=== PATIENT | female | born 2000 | race Caucasian/White ===

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

== ENCOUNTER → 2019-04-20 17:07 | Outpatient (CLI) | payer OTHER, SELFPAY ==
[2019-04-23 10:36] LABS: Neisseria gonorrhoeae, NAA Negative (Negative)
== END ==
PROVIDERS: Visit Provider Nurse Practitioner Obstetrics & Gynecology
DX: Z72.51 High risk heterosexual behavior (principal)
CPT/HCPCS: 87491; 87591

== ENCOUNTER → 2019-04-27 10:08 | Outpatient (CLI) | payer OTHER, SELFPAY ==
--- NOTE | 2019-04-27 10:08 | XR_ITS ---
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 Left femoral neck density is 0.843 grams/centimeters sq with a Z-score of -0.1. L1-L4 density is 1.008 grams/centimeters sq with a Z-score of -0.1. IMPRESSION: Normal bone density for age matched controls Dictated by: Shahid Huston MD 04/27/2019 11:48 Electronically signed by Shahid Huston MD in [place] 04/27/2019 11:48
== END ==
PROVIDERS: PCP Nurse Practitioner Obstetrics & Gynecology; Visit Provider Obstetrics & Gynecology
DX: Z79.3 Long term (current) use of hormonal contraceptives (principal)
CPT/HCPCS: 77080

== ENCOUNTER → 2019-09-18 09:26 | Outpatient (CLI) | payer OTHER, SELFPAY ==
[2019-09-19 08:35] LABS: Covid-19 Nasal PCR Sendout UK Not Detected
== END ==
PROVIDERS: Visit Provider Otolaryngology
DX: Z03.818 Encounter for observation for suspected exposure to other biological agents ruled out (principal)
CPT/HCPCS: U0003

== ENCOUNTER 2019-10-15 07:56 | Emergency (ER) | payer OTHER, SELFPAY ==
[2019-10-15 08:03] VITALS: BP 114/73; PULSE 70; RESP 18; TEMP 36.6; O2SAT 96; BMI 22.6
--- NOTE | 2019-10-15 08:14 | PC.NURSE ---
ER gave verbal orders for pt
--- NOTE | 2019-10-15 08:15 | CT_ITS ---
PROCEDURE: CT HEAD/BRAIN WO CON CLINICAL INDICATION: headache x4 days, some nausea COMPARISON: CT HDWO CT HEAD W/O CONTRAST from 03/13/2016 TECHNIQUE: Axial images obtained. All CT scans at the facility use one or more dose reduction, viz: automated exposure control, ma/kV adjustment per patient size (including targeted exams where dose is matched to indication, i.e. head), or iterative reconstruction technique. FINDINGS: No midline shift, mass effect, intracranial hemorrhage, hydrocephalus, or extra-axial fluid collection is evident. The calvarium has an unremarkable appearance. No mastoid effusion. No sinus air-fluid level. IMPRESSION: No acute intracranial finding Dictated Dr. Amarjit Mckoen MD 10/15/2019 08:47 Dr. Amarjit Livingston MD in [place] 10/15/2019 08:47
--- NOTE | 2019-10-15 08:17 | PC.NURSE ---
notified rad of Ct head order, spoke with logan
--- NOTE | 2019-10-15 08:34 | PC.NURSE ---
pt to CT
[2019-10-15 08:58] VITALS: BP 110/89; PULSE 63; RESP 18; O2SAT 98
[2019-10-15 09:19] VITALS: BP 118/88; PULSE 64; O2SAT 99
--- NOTE | 2019-10-15 09:30 | HMH.EDHA ---
ED Disposition Clinical Impression: Migraine, Vulvovaginitis Disposition: Home, Self-Care Condition on Discharge: Good Instructions: DI for Migraine Prescriptions: Fluconazole [Diflucan 150mg tab] 150 mg PO DAILY 3 Days #3 tab Transmission Status: Pending to [facility] Referrals: PCP,No [Primary Care Provider] - - Critical Care Critical Care Time: No Attestation: On 10/15/19, the high probability of a clinically significant, sudden or life threatening deterioration of the following system(s) required my full and direct attention, intervention and personal management. The time I documented below is in addition to time spent performing reported procedures but includes the following listed in this critical care notation. Medical Decision Making - Medical Records Medical records reviewed: Yes: I reviewed the patient's medical records. - Emerson Inquiry Pt receiving controlled substance: No Vital Signs: 10/15/19 08:03 10/15/19 08:58 10/15/19 09:19 Temperature 97.9 F Temperature Source Oral Pulse Rate [Right Radial] 70 63 64 Respiratory Rate 18 18 Blood Pressure [Right Arm] 114/73 110/89 118/88 Blood Pressure Mean [Right Arm] 86 96 98 Blood Pressure Source [Right Arm] Automatic Cuff Automatic Cuff Automatic Cuff Blood Pressure Position [Right Arm] Sitting Sitting Sitting 02 Sat by Pulse Oximetry 96 98 99 Oxygen Delivery Method Room Air Room Air Room Air - Lab Data Lab results reviewed: Yes: I reviewed the patient's lab results. Orders (Tests/Meds): ED MEDICATIONS Generic Name Dose Route Start Last Admin Trade Name Freq PRN Reason Stop Dose Admin Sodium Chloride 1,000 mls @ 999 mls/hr 10/15/19 08:30 10/15/19 08:30 Sod Chlor 0.9% 1000ml Bag IV 10/15/19 09:30 999 mls/hr .[id number] MICHAEL Administration Discontinued Medications Generic Name Dose Route Start Last Admin Trade Name Freq PRN Reason Stop Dose Admin Dihydroergotamine Mesylate 1 mg 10/15/19 08:15 10/15/19 08:30 D.H.E. 45 1mg/Ml Amp IVP 10/15/19 08:16 1 mg ONCE ONE Administration Diphenhydramine HCl 25 mg 10/15/19 08:25 10/15/19 08:30 Benadryl 50mg/1ml Vial IV 10/15/19 08:26 25 mg ONCE ONE Administration Metoclopramide HCl 10 mg 10/15/19 08:15 10/15/19 08:30 Reglan 10mg/2ml Vial IVP 10/15/19 08:16 10 mg ONCE ONE Administration ORDERS Category Date Time Status Urinalysis and Microscopic Stat Lab 10/15/19 08:15 Ordered Urine , HCG Qual. Stat Lab 10/15/19 08:15 Ordered - CT Data CT Scan: Head Time Received: 09:[address] Reviewed: Yes: I have viewed the radiologist's interpretation Preliminary Findings: Normal/NAD Headache HPI - General Chief Complaint: Headache Stated Complaint: migraine voming Time Seen by Provider: 10/15/19 09:30 Mode of Arrival: Ambulatory Limitations: No Limitations Description of Symptoms (Recalled from ER Triage Doc. by RN): Pt reports headache x4 days, pt reports nausea this am with 1 episode of vomitting. Pt also reports she is concerned she may have a UTI and yeast infection. - History of Present Illness HPI Narrative: A 19-year-old female presents emergency department complain about a headache. Patient states that headache started about 3 to 4 days ago and she says it is kind of a classical migraine-like picture. Patient states that she is also had one episode of emesis today as well patient does describe this headache is a bandlike constriction going around her head she rates this pain 7 out of 10 patient states exacerbating factors include bright lights and loud noises. Alleviating factors include rest. Patient denies any nausea vomiting or diarrhea except for 1 episode of emesis patient also states that she does have photophobia. Patient states she does denies any recent fever shakes or chills. Patient denies any sore throat patient also denies any loss of taste or smell. Patient denies any arthralgias or cj
[2019-10-15 09:55] VITALS: BP 127/81; PULSE 81; RESP 18; TEMP 36.9; O2SAT 100
== END 2019-10-15 09:54 | disposition home or self-care (01) ==
PROVIDERS: Emergency Provider Family Medicine
DX: G43.909 Migraine, unspecified, not intractable, without status migrainosus (principal); N76.0 Acute vaginitis
CPT/HCPCS: 70450; 96365; 96375; 99283; 99284; J1110

== ENCOUNTER → 2019-11-11 13:05 | Outpatient (CLI) | payer OTHER, SELFPAY ==
[2019-11-16 15:03] LABS: QuantiFERON-TB Gold Plus Negative (Negative)
== END ==
LOC: UTC.OUT 13:07 → LAB 13:57
PROVIDERS: Visit Provider Nurse Practitioner
DX: Z11.1 Encounter for screening for respiratory tuberculosis (principal)
CPT/HCPCS: 36415; 86480

== ENCOUNTER 2020-04-05 09:19 | Emergency (ER) | payer OTHER, SELFPAY ==
[2020-04-05 09:20] VITALS: BP 122/72; PULSE 89; RESP 16; TEMP 36.9; O2SAT 96; BMI 22.6
--- NOTE | 2020-04-05 09:30 | HMH.EDGENADL ---
ED Disposition Clinical Impression: Viral upper respiratory tract infection Disposition: Home, Self-Care Condition on Discharge: Good Instructions: DI for Viral Upper Respiratory Infection -- Adult Additional Instructions: Quarantine yourself until you obtain your COVID-19 test result. Additional instructions for UPPER RESPIRATORY INFECTION: See your physician if not improving in 3-4 days or if worsening. Rest and drink plenty of fluids. Return immediately if you have an uncontrollable fever greater than 104 degrees, difficulty breathing or shortness of breath, persistent vomiting, or inability to swallow. Referrals: PCP,No [Primary Care Provider] - Forms: Work/School Release - Critical Care Critical Care Time: No Attestation: On , the high probability of a clinically significant, sudden or life threatening deterioration of the following system(s) required my full and direct attention, intervention and personal management. The time I documented below is in addition to time spent performing reported procedures but includes the following listed in this critical care notation. Medical Decision Making - Emerson Inquiry Pt receiving controlled substance: No Vital Signs: 04/05/20 09:20 04/05/20 09:54 04/05/20 10:38 Temperature 98.5 F 98.6 F Temperature Source Oral Oral Pulse Rate 78 Pulse Rate [Right] 89 84 Respiratory Rate 16 18 16 Blood Pressure 113/60 Blood Pressure [Right Arm] 122/72 111/74 Blood Pressure Mean [Right Arm] 88 86 Blood Pressure Source Automatic Cuff Blood Pressure Source [Right Arm] Automatic Cuff Blood Pressure Position Sitting Blood Pressure Position [Right Arm] Sitting 02 Sat by Pulse Oximetry 96 96 Oxygen Delivery Method Room Air Room Air - Lab Data Lab results reviewed: Yes: I reviewed the patient's lab results. Lab Results 04/05/20 09:45: Influenza Type A Ag Negative, Influenza Type B Ag Negative 04/05/20 09:45: Group A Strep Rapid Negative Orders (Tests/Meds): ED MEDICATIONS Discontinued Medications Generic Name Dose Route Start Last Admin Trade Name Freq PRN Reason Stop Dose Admin Acetaminophen 650 mg 04/05/20 09:36 04/05/20 09:43 Acetaminophen 325mg Tab PO 04/05/20 09:37 650 mg ONCE ONE Administration ORDERS Category Date Time Status Strep Screen Confirmation Stat Micro 04/05/20 09:45 Received General Adult HPI - General Stated complaint: Fever, chills, vomiting Time Seen by Provider: 04/05/20 09:30 - History of Present Illness HPI narrative: Says that yesterday she had an episode of vomiting in the morning. She went to work and felt fine the rest of the day. During the night last night began having flulike symptoms. She has body aches, headache, sore throat, nasal congestion. Denies cough. Denies diarrhea. Denies urinary symptoms. She says that she was exposed to COVID-19 1 week ago. She was at the house with somebody for couple of hours who then later tested positive a couple days later. - Related Data Previous Rx's Medication Instructions Recorded Fluconazole [Diflucan 150mg tab] 150 mg PO DAILY 3 Days #3 tab 10/15/19 medroxyprogesterone 150 mg/mL 150 mg IM [id number] #1 ml 01/12/20 intramuscular suspension Allergies Allergy/AdvReac Type Severity Reaction Status Date / Time No Known Allergies Allergy Verified 04/20/19 10:00 [facility] History - Hepatitis A Screen Attestation statement:: This patient has been screened for Hepatitis A risk factors. I have reviewed the patient's past medical history: Yes Medical History: Denies:: Cancer, Diabetes Mellitus Type 1, Diabetes Mellitus Type 2, MRSA Laterality Cases: Bilateral: Other Other Surgeries: Yes: No Previous Surgery Amputation: No Fractures: No - Social History Smoking Status: Never smoker Alcohol Intake: never Occupational Status: student Family Hx:: Cancer ROS Obtained: Yes Systems reviewed as appropriate & no
[2020-04-05 09:54] VITALS: BP 111/74; PULSE 84; RESP 18; O2SAT 96
[2020-04-05 10:12] LABS: Strep Scrn Group A (Rapid) Negative (Negative)
[2020-04-05 10:38] VITALS: BP 113/60; PULSE 78; RESP 16; TEMP 37; O2SAT 98
--- NOTE | 2020-04-05 13:52 | PC.NURSE ---
Notified patient of positive covid results
== END 2020-04-05 10:43 | disposition home or self-care (01) ==
PROVIDERS: Emergency Provider Emergency Medicine
DX: B34.9 Viral infection, unspecified (principal)
CPT/HCPCS: 87275; 87276; 87430; 99282; U0003

== ENCOUNTER 2020-10-04 13:17 | Emergency (ER) | payer OTHER, SELFPAY ==
[2020-10-04 13:18] VITALS: BP 111/79; PULSE 98; RESP 19; TEMP 37.1; O2SAT 99; BMI 22.2
[2020-10-04 13:57] LABS: Adenovirus,PCR Not Detected (NotDetected); Bordetella Pertussis Not Detected (NotDetected); Chlamydophila Pneumoniae, PCR Not Detected (NotDetected); Coronavirus 19, PCR Not Detected (NotDetected); Coronavirus 229E Not Detected (NotDetected); Coronavirus NL63 Not Detected (NotDetected); Coronavirus OC43 Not Detected (NotDetected); Coronovirus HKU1,PCR Not Detected (NotDetected); Human Metapneumovirus Not Detected (NotDetected); Influenza A, PCR Not Detected (NotDetected); Influenza AH1, 2009 Not Detected (NotDetected); Influenza AH1, PCR Not Detected (NotDetected); Influenza AH3,PCR Not Detected (NotDetected); Influenza B, PCR Not Detected (NotDetected); Mycoplasma Pneumoniae, PCR Not Detected (NotDetected); Parainfluenza 1, PCR Not Detected (NotDetected); Parainfluenza 2, PCR Not Detected (NotDetected); Parainfluenza 3, PCR Not Detected (NotDetected); Parainfluenza 4, PCR Not Detected (NotDetected); Respiratory Syncytial Virus Not Detected (NotDetected)
--- NOTE | 2020-10-04 14:22 | HMH.EDUTC ---
[facility] [place] Impression: Viral syndrome Disposition: Home, Self-Care Condition on Discharge: Good Instructions: DI for Viral Syndrome, DI for COVID-19 (Suspected or Confirmed ), Preventing the Spread of Coronavirus Discharge Instructions Additional Instructions: Drink plenty of fluids. Take tylenol for pain or fever. Return if you begin to have difficulty breathing. Follow up with your regular doctor. GO TO THE ER FOR ANY WORSENING SYMPTOMS The zofran is for nausea/vomiting. Prescriptions: Ondansetron [Zofran 4mg ODT] 4 mg PO Q8HP PRN #12 tab.rapdis PRN Reason: Nausea Transmission Status: Received by [facility] Referrals: Provider,Referral, MD [Primary Care Provider] - Forms: Work/School Release Time of Disposition: 14:31 Medical Decision Making - Medical Records Medical records reviewed: No: I reviewed the patient's medical records. - Emerson Inquiry Pt receiving controlled substance: No Vital Signs: 10/04/20 13:18 10/04/20 14:31 Temperature 98.8 F 98.8 F Temperature Source Oral Pulse Rate 98 H Pulse Rate [Left Radial] 98 H Respiratory Rate 19 19 Blood Pressure 111/79 Blood Pressure [Right Arm] 111/79 Blood Pressure Mean [Right Arm] 89 Blood Pressure Source [Right Arm] Automatic Cuff Blood Pressure Position [Right Arm] Sitting 02 Sat by Pulse Oximetry 99 Oxygen Delivery Method Room Air - Lab Data Lab Results 10/04/20 13:26: Chlamy pneumoniae PCR Not detected, Adenovirus (PCR) Not detected, B. pertussis DNA (PCR) Not detected, Coronavirus OC43 (PCR) Not detected, Coronavirus HKU1 (PCR) Not detected, Coronavirus 229E (PCR) Not detected, Coronavirus NL63 (PCR) Not detected, Human Metapneumovir PCR Not detected, Influenza A (H1) PCR Not detected, Influ A (H1N1/09) PCR Not detected, Influenza A (H3) PCR Not detected, Influenza Type A (PCR) Not detected, Influenza Type B (PCR) Not detected, M. pneumoniae (PCR) Not detected, Parainfluenza 1 (PCR) Not detected, Parainfluenza 2 (PCR) Not detected, Parainfluenza 3 (PCR) Not detected, Parainfluenza 4 (PCR) Not detected, RSV (PCR) Not detected, Entero/Rhino (PCR) Detected A 10/04/20 13:26: SARS-CoV-2 (PCR) Not detected, Influenza A Untype (PCR) Not detected, Influenza Type B (PCR) Not detected [facility] [place] - General Stated complaint: cough,headache,runny nose Time Seen by Provider: 10/04/20 14:22 Mode of Arrival: Ambulatory Source of Information: Patient Limitations: No Limitations Description of Symptoms (Recalled from Triage Doc. by RN): test for covid and flu. Weakness, cough, congestion, lost of taste and smell for 2 days HEENT Symptoms (Recalled from RN notes): No Resp Symptoms (Recalled from RN notes): No Skin Symptoms (Recalled from RN notes): No MS Symptoms (Recalled from RN notes): No Functional Status (Recalled from RN notes): wnl - History of Present Illness Provider Complaint: She is here needing to be tested for covid-19. 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 She did have covid-19 in Apr 2020. She denies any fever/chills/body aches. - Related Data Previous Rx's Medication Instructions Recorded Fluconazole [Diflucan 150mg tab] 150 mg PO DAILY 3 Days #3 tab 10/15/19 medroxyprogesterone 150 mg/mL 150 mg IM [id number] #1 ml 01/12/20 intramuscular suspension Ondansetron [Zofran 4mg ODT] 4 mg PO Q8HP PRN #12 tab.rapdis 10/04/20 Allergies Allergy/AdvReac Type Severity Reaction Status Date / Time No Known Allergies Allergy Verified 04/20/19 10:00 - Worker's Comp Is this a Worker's Comp case?: No [facility] [place] History - Hepatitis A Screen Drug use history?: No High risk sexual behaviors?: No History of sexually transmitted infection?: No Currently employed?: No Childcare worker?: No Do you have indoor plumbing?: Yes Do you have electricity?: Yes Attestation statement:
[2020-10-04 14:31] VITALS: BP 111/79; PULSE 98; RESP 19; TEMP 37.1; O2SAT 99
[2020-10-04 16:37] LABS: Rhinovirus/Enterovirus Detected (NotDetected)
== END 2020-10-04 14:32 | disposition home or self-care (01) ==
PROVIDERS: Emergency Provider Nurse Practitioner Family
DX: B34.8 Other viral infections of unspecified site (principal); Z20.822 Contact with and (suspected) exposure to COVID-19
CPT/HCPCS: 87486; 87581; 87633; 87798; 99202; G0463; U0003

== ENCOUNTER → 2021-01-05 11:35 | Outpatient (CLI) | payer OTHER, SELFPAY ==
[2021-01-05 12:03] LABS: Basophils % 0.9 % (0.1-2.0); Eosinophils # 0.1 K/mm3 (0.0-0.4); Eosinophils % 1.1 % (0.1-12.0); Hematocrit 44.8 % (37.0-47.0); Hemoglobin 14.6 g/dL (12.2-16.2); Lymphocytes # 1.7 K/mm3 (0.7-4.5); Lymphocytes % 34.2 % (10-50); Mean Corpuscular HGB Conc 32.6 g/dL (31.8-35.4); Mean Corpuscular Hemoglobin 32.1 pg (27.0-31.2); Mean Corpuscular Volume 98.6 fl (81-99); Mean Platelet Volume 8.4 fl (7.4-10.4); Monocytes # 0.3 K/mm3 (0.1-1.0); Monocytes % 6.3 % (1.7-9.3); Neutrophils # 2.8 K/mm3 (1.8-7.8); Neutrophils % 57.5 % (37.0-80.0); Platelet Count 202 K/mm3 (142-424); Red Blood Count 4.54 M/mm3 (4.20-5.40); Red Cell Distribution Width 12.7 % (11.5-17.5); White Blood Count 4.9 K/mm3 (4.8-10.8)
[2021-01-05 12:36] LABS: Chloride 107 mmol/L (98-107); Potassium 4.1 mmoL/L (3.5-5.1); Sodium 141 mmol/L (136-145)
[2021-01-05 12:38] LABS: Alanine Aminotransferase 16 U/L (12-78); Aspartate Amino Transferase 23 U/L (14-36); Blood Urea Nitrogen 8 mg/dl (7-17); Estimated Glomerular Filt Rate 126 ml/min (>60); GFR (African American) 153 ML/MIN (>60)
[2021-01-05 12:39] LABS: Albumin Level 4.7 g/dl (3.5-5.0); Albumin/Globulin Ratio 1.8 (1.1-1.8); Alkaline Phosphatase 63 U/L (38-126); Anion Gap 14.1 mEq/L (5-15); Bilirubin,Total 0.8 mg/dl (0.2-1.3); Calcium 9.5 mg/dl (8.4-10.2); Carbon Dioxide 24 mmol/L (22.0-30.0); Chol/HDL Ratio 2.8 (1-3.5); Cholesterol 137 mg/dl (140-200); Globulin 2.6 g/dL (1.3-3.2); Glucose 81 mg/dl (74-100); HDL Cholesterol 49 mg/dl (40-60); Total Protein,Serum 7.3 g/dl (6.3-8.2); Triglycerides 72 mg/dl (30-150); VLDL Cholesterol 14 mg/dL (0-40)
[2021-01-05 12:50] LABS: Direct LDL Cholesterol 68.42 mg/dL (100-129)
[2021-01-06 08:37] LABS: HIV Screen 4th Generation wRfx Non Reactive (Non Reactive); HSV 1 IgG, Type Spec 4.59 index (0.00-0.90); HSV 2 IgG, Type Spec <0.91 index (0.00-0.90); Hepatitis B Surface Antigen Negative (Negative); Hepatitis C Antibody 0.1 s/co ratio (0.0-0.9); Rubella Antibodies, IgG 2.99 index (Immune >0.99)
[2021-01-06 10:42] LABS: Rapid Plasma Reagin Ab Titer Non Reactive (NonRea<1:1)
== END ==
PROVIDERS: Visit Provider Nurse Practitioner Obstetrics & Gynecology
DX: Z01.419 Encounter for gynecological examination (general) (routine) without abnormal findings (principal); Z72.51 High risk heterosexual behavior
CPT/HCPCS: 36415; 80053; 80061; 85025; 86592; 86695; 86703; 86762; 86790; 86850; 87340; 87380; G0432

== ENCOUNTER → 2021-01-16 09:09 | Outpatient (CLI) | payer OTHER, SELFPAY ==
--- NOTE | 2021-01-16 09:09 | XR_ITS ---
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 The left hip BMD is 0.922 with a T-score of -0.2. The lumbar spine BMD is 1.068 with a T-score of 0.2. IMPRESSION: This patient is considered normal according to the World Health Organization criteria. Fracture risk is low. Based on these results a follow-up exam is recommended in 2 year. Dictated by: Shahid Huston MD 01/17/2021 16:59 Shahid Huston MD in [place] 01/17/2021 16:59
== END ==
PROVIDERS: PCP Family Medicine; Visit Provider Nurse Practitioner Obstetrics & Gynecology
DX: Z79.3 Long term (current) use of hormonal contraceptives (principal); Z79.899 Other long term (current) drug therapy
CPT/HCPCS: 77080